=== PATIENT | female | born 1940 | race Caucasian/White ===

== ENCOUNTER 2018-06-23 09:12 | Emergency (ER) | payer MEDICARE, BC, SELFPAY ==
[2018-06-23 09:15] VITALS: BP 142/68; PULSE 80; RESP 16; TEMP 36.7; O2SAT 97
--- NOTE | 2018-06-23 09:48 | DI.RAD_ITS ---
SYMPTOM/DIAGNOSIS: FELL, PAIN, SWELLING LEFT THUMB: Three views. There is an oblique, intra-articular nondisplaced fracture involving the lateral aspect of the base of the proximal phalanx of the left thumb. Degenerative changes are seen in the left thumb. They are most marked at the first carpal metacarpal joint. No radiopaque foreign bodies are seen in the soft tissues. IMPRESSION: Nondisplaced intra-articular fracture involving the base of the proximal phalanx of the left thumb.
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
--- NOTE | 2018-06-23 11:32 | DI.VRAD_ITS ---
EXAM: XR Left Finger(s), 2 or More Views CLINICAL HISTORY: 77 years old, female; Pain; Finger(s); Left; Patient HX: Left thumb pain after fall yesterday, pain and swelling a mid and distal lt thumb. TECHNIQUE: Frontal, lateral and oblique views of finger(s) of the left hand. COMPARISON: No relevant prior studies available. FINDINGS: Chest AP a consistent with age. 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 Small corner fracture at the base of the proximal phalanx of the thumb on the lateral aspect extending slightly into the joint space but without significant joint incongruity. This appears to represent a avulsion type fracture. IMPRESSION: Fracture of the base of the proximal phalanx of the thumb as outlined above. Dictated and Authenticated by: Alvin Ngo MD. Ordering:MARINA PAVON MD
[2018-06-23 11:52] VITALS: BP 142/68; PULSE 80; RESP 16; TEMP 36.7; O2SAT 97
== END 2018-06-23 11:51 | disposition home or self-care (01) ==
PROVIDERS: Emergency Provider Student in an Organized Health Care Education/Training Program; PCP Internal Medicine
DX: S62.512A Displaced fracture of proximal phalanx of left thumb, initial encounter for closed fracture (principal); W05.2XXA Fall from non-moving motorized mobility scooter, initial encounter
CPT/HCPCS: 26720; 73140

== ENCOUNTER → 2018-07-13 10:08 | Outpatient (BNVA) | payer MEDICARE, BC, SELFPAY | PROVIDERS: PCP Internal Medicine; Referring Provider Internal Medicine; Visit Provider Student in an Organized Health Care Education/Training Program | DX: S62.515A Nondisplaced fracture of proximal phalanx of left thumb, initial encounter for closed fracture (principal); M65.311 Trigger thumb, right thumb; V00.831A Fall from motorized mobility scooter, initial encounter | CPT/HCPCS: 20600; 99204; 99214; J1030 ==

== ENCOUNTER 2018-09-11 14:14 | Outpatient (REF) | payer MEDICARE, BC, SELFPAY ==
[2018-09-11 19:29] LABS: Anion Gap 8.7 mmol/L (3-11); BUN 19 mg/dL (7-18); CO2 28.3 mmol/L (21.0-32.0); CREATININE 0.82 mg/dL (0.55-1.02); Calcium 9.2 mg/dL (8.5-10.1); Chloride 102 mmol/L (98-107); Glucose 85 mg/dL (70-100); Potassium 4.2 mmol/L (3.5-5.1); Sodium 139 mmol/L (136-145)
== END 2018-09-11 14:34 ==
LOC: NCHCN 14:14
PROVIDERS: PCP Internal Medicine; Visit Provider Physician Assistant Medical
DX: I10 Essential (primary) hypertension (principal)
CPT/HCPCS: 80048

== ENCOUNTER 2018-10-10 01:20 | Outpatient (CLI) | payer MEDICARE, BC, SELFPAY ==
--- NOTE | 2018-10-10 11:18 | DI.MAMMO_ITS ---
SYMPTOMS/DIAGNOSIS: SCREENING, Z12.89, FAMILY H/O BREAST CA BILATERAL SCREENING MAMMOGRAM: Mammograms were interpreted according to the usual protocol including computer analysis with CAD system, tomosynthesis and C view imaging. Comparison is made with exams from 2009 through 2013. The breasts are composed of heterogeneously dense fibroglandular tissue, breast density category C. No suspicious masses or suspicious microcalcifications are seen. There has been no significant change. IMPRESSION: Category 1C, negative mammogram. Yearly screening mammography is recommended. SA ASSESSMENT OF FINDINGS: Negative. Category 1. Patient will receive a letter notifying them of these results. Bi-RADS category C. The breasts are heterogeneously dense, which may obscure small masses.
== END 2018-10-10 01:40 ==
PROVIDERS: PCP Internal Medicine; Visit Provider Physician Assistant Medical
DX: Z12.31 Encounter for screening mammogram for malignant neoplasm of breast (principal); Z80.3 Family history of malignant neoplasm of breast
CPT/HCPCS: 77063; 77067

== ENCOUNTER 2019-08-28 00:40 | Outpatient (CLI) | payer MEDICARE, BC, SELFPAY ==
--- NOTE | 2019-08-28 09:14 | DI.RAD_ITS ---
EXAM: XR HIP RT COMPLETE AP PELVIS INDICATION: S/P RTHA 03/27, WORSENING THIGH PAIN. TECHNIQUE: 2D digital imaging was performed. FINDINGS: A right total hip prosthesis has been placed since the previous exam and appears well aligned. No pe riprosthetic lucencies are seen. There is prominent spurring at the left hip joint, both the acetabu lum and femoral head. There is increased sclerosis and a subchondral cyst at the superior lateral ma rgin of the femoral head. There are old bilateral inferior pubic ramus fractures. Degenerative disc changes are seen in the lower lumbar spine. SI joints and pubic symphysis are unremarkable. IMPRESSION: Moderate to severe degenerative changes of the left hip. Unremarkable right total hip prosthesis.
== END 2019-08-28 01:00 ==
PROVIDERS: PCP Internal Medicine; Visit Provider Nurse Practitioner Adult Health
DX: M79.604 Pain in right leg (principal); Z96.641 Presence of right artificial hip joint; M16.12 Unilateral primary osteoarthritis, left hip
CPT/HCPCS: 73502

== ENCOUNTER 2020-04-24 09:09 | Emergency (ER) | payer MEDICARE, BC, SELFPAY ==
[2020-04-24 09:14] VITALS: BP 143/69; PULSE 83; RESP 14; TEMP 36.7; O2SAT 96
--- NOTE | 2020-04-24 09:42 | ED.GENADUL_ITS ---
Discharge Plan Disposition Patient Disposition: HOME Condition: Stable Discharge Details Chief Complaint: Cellulitis Clinical Impression: Bee sting Primary Care Provider: Morales Pal[facility]ox ED Provider: Alexis Navarro Home Meds and New Rx's Prescriptions: New cephalexin [Keflex] 500 mg capsule 500 mg PO QID 10 Days Qty: 40 RF: 0 hydrocortisone 1 % lotion 1 applic TP BID PRNQty: 60 RF: 0 Continued verapamil 120 MG tablet extended release 240 mg PO DAILY RF: 0 multivitamin [Daily Multiple] 1 EACH tablet 1 ea PO DAILY RF: 0 docusate sodium [Stool Softener] 100 MG capsule 100 mg PO PRN PRNRF: 0 atorvastatin 40 mg tablet 40 mg PO DAILY RF: 0 Discharge Instructions Instructions: Insect Bite or Sting (ED) Additional Instructions: Rest, elevate, cool compresses every 2 hours for 20 minutes. Continue taking Benadryl [id number]-agtsryb as directed and add on 1% hydrocortisone cream as directed. Please watch for new or worsening symptoms and return to the ER for any concerns. I have given you a prescription for Keflex to only fill if the area becomes painful, starts to streak up your arm, or you begin to have a fever. As already stated, if you are concerned you may obviously return to the ER. I do recommend contacting your primary care provider later today for prompt outpatient reevaluation. Discharge Data Discharge Date/Time-TO BE ENTERED AT DEPARTURE: 04/24/20 10:01 Medical Decision Making Pleasant 79-year-old female in no acute distress presents for a bee sting that occurred yesterday. She reports similar reaction to the other hand 1 week ago, took 2 days to completely clear up. She appears well, nontoxic, no evidence of lip or tongue swelling, angioedema, or systemic reaction. Clinically this appears to be a localized reaction as opposed to an infection. She took Benadryl last night but has not taken Benadryl today. She reports that her primary concern is that of pruritus. I see no obvious signs of infection although she does voice concern of infection. I explained to her that I believe this to be a localized bee sting in the continuing elevation, cool compresses, Benadryl consistently, and using a topical 1% hydrocortisone cream would be appropriate for localized sting. We did discuss signs and symptoms of infection and I will provide her a prescription of Keflex if symptoms are presenting such as fever, pain, worsening redness or spreading of the redness. We also discussed that this could be the signs of a worsening allergic reaction so I did recommend return either here to the ER or following up with her primary care provider. She has no additional questions or concerns and is comfortable with this plan. Medical Records Medical records reviewed: Yes I reviewed the patient's medical records. HPI General Mode of arrival: ambulatory . Date/Time Provider Initiated Documentation: 04/24/20 09:14 . Limitations to Documentation: no limitations . Information obtained by: patient . HPI Narrative: This is an 79-year-old female with history of hyperlipidemia, hypertension, GERD, presenting for a reaction to a bee sting. Patient is right-hand dominant, stung on her left thumb yesterday around 11:30 AM. She took Benadryl last night, no Benadryl today. She reports the area is red, swollen and itchy. She denies any fever, pain, tongue or lip swelling, difficulty breathing or speaking. She reports a similar reaction roughly 1 week ago, took approximately 2 days for the reaction to resolve completely. Denies any chest pain or shortness of breath. Related Data Home Medications Medication Instructions Recorded Confirmed verapamil 240 mg PO DAILY tab-cap NS 05/27/14 04/24/20 docusate sodium [Stool Softener] 100 mg PO PRN PRN tab-cap 05/09/17 04/24/20 multivitamin [Daily Multiple] 1 ea PO DAILY 05/09/17 04/24/20 atorvastatin 40 mg PO DAILY 04/24/20 04/24/20 cephalexin [Keflex] 500 mg PO QID 10 Days #40 cap 04/24/20 hydrocortisone 1 applic TP BID PRN #60 ml 04/24/20 Previous Rx's Medication Instructions Recorded cephalexin [Keflex] 500 mg PO QID 10 Days #40 cap 04/24/20 hydrocortisone 1 applic TP BID PRN #60 ml 04/24/20 Allergies Allergy/AdvReac Type Severity Reaction Status Date / Time aspirin Allergy Unverified 04/24/20 09:18 General Stated Complaint: Cellulitis REID: 3 Review of Systems Constitutional Constitutional: Denies fatigue, Denies fever(s) and Denies weakness ENT Ears, Nose, Mouth, and Throat: Denies sore throat and Denies throat swelling Cardiovascular Cardiovascular: Denies chest pain and Denies dyspnea Respiratory Respiratory: Denies cough, Denies dyspnea and Denies wheezing Gastrointestinal Gastrointestinal: Denies nausea Musculoskeletal Musculoskeletal: Denies numbness and Denies tingling Integumentary/Breasts Skin/Breast: Reports erythema Neurologic Neurologic: Denies numbness, Denies tingling and Denies weakness Endocrine Endocrine: Denies fatigue Allergic/Immunologic Allergic/Immunologic: Denies throat swelling and Denies wheezing [facility] Medical History GERD (gastroesophageal reflux disease) Surgical History gonzalo (05/09/11) Colonoscopy - IV Sedation (~2010) polyps found Social History Smoking/Tobacco Use Status: Former Tobacco Use Alcohol Intake: current Alcohol Intake frequency: a few times a month Alcohol type: wine Drug use: Never Do you feel safe at home: Yes Do you feel safe in your relationship?: Yes Exam Const General: cooperative, healthy appearing, comfortable and no acute distress Orientation: alert and awake [facility] Head: normal to inspection, normocephalic and atraumatic Face and sinus: normal facial exam Mouth: oral mucosae normal and moist mucous membranes Throat: posterior oropharynx normal Eyes Conjunctivae: conjunctivae normal Sclera: sclerae normal Neck Neck: normal visual inspection, full ROM, trachea midline and supple Resp Effort & Inspection: normal respiratory effort and able to speak in complete sentences Auscultation: clear to auscultation bilaterally Cardio Rate: regular rate Rhythm: regular rhythm Skin Lesions: no lesions Neuro General: patient alert, patient awake, patient oriented x3, moves all extremities and no focal motor deficits Cognition: normal cognition Speech: speech normal Sensory Exam: no sensory deficits noted Extrem Right upper extremity: normal to inspection, full ROM and normal capillary refill Hand/finger images: 1. Site of bee sting, no obvious stinger 2. Minimal erythema, swelling, areas of excoriation. There is mild warmth. The area is non-circumferential. There is no induration, fluctuance, weeping, pointing abscess. The area is nontender. Neuro, vascular, tendon intact. There is no lymphangitic streaking Right lower extremity: normal to inspection and full ROM Left lower extremity: normal to inspection and full ROM Psych Appearance: grossly normal Mental Status: mental status grossly normal Course Vital Signs Vital signs: Vital Signs Temperature 36.7 C 04/24/20 09:14 Pulse 83 04/24/20 09:14 Respiratory Rate 14 04/24/20 09:14 Blood Pressure 143/69 H 04/24/20 09:14 Pulse Oximetry 96 04/24/20 09:14 Temperature 36.7 C 04/24/20 09:14 Temperature Source Skin 04/24/20 09:14 Pulse 83 04/24/20 09:14 Respiratory Rate 14 04/24/20 09:14 Respiratory Effort 04/24/20 09:20 Blood Pressure 143/69 H 04/24/20 09:14 Blood Pressure Position Sitting 04/24/20 09:14 Pulse Oximetry 96 04/24/20 09:14 Oxygen Delivery Method Room Air 04/24/20 09:14 Oxygen Flow Rate 0 04/24/20 09:14 Pain Level 8 04/24/20 09:14 Comment tylenol at 0430 04/24/20 09:14
== END 2020-04-24 10:01 | disposition home or self-care (01) ==
PROVIDERS: Emergency Provider Physician Assistant; PCP Internal Medicine
DX: T63.451A Toxic effect of venom of hornets, accidental (unintentional), initial encounter (principal); L29.8 Other pruritus; I10 Essential (primary) hypertension
CPT/HCPCS: 99283

== ENCOUNTER 2020-07-08 04:12 | Outpatient (CLI) | payer MEDICARE, BC, SELFPAY ==
[2020-07-08 10:02] LABS: ALT 34 U/L (14-59); AST 22 U/L (15-37); Albumin 3.5 g/dL (3.4-5.0); Alkaline Phosphatase 96 U/L (46-116); Bilirubin, Direct 0.14 mg/dL (0.00-0.20); Bilirubin, Total 0.7 mg/dL (0.2-1.0); Total Protein 6.6 g/dL (6.4-8.2)
== END 2020-07-08 04:32 ==
PROVIDERS: PCP Internal Medicine; Visit Provider Internal Medicine Cardiovascular Disease
DX: E78.5 Hyperlipidemia, unspecified (principal)
CPT/HCPCS: 36415; 80076

== ENCOUNTER 2022-05-25 18:41 | Outpatient (REF) | payer MEDICARE, BC, SELFPAY ==
[2022-05-25 21:41] LABS: ALT 33 U/L (14-59); Anion Gap 9.1 mmol/L (3-11); BUN 15 mg/dL (7-18); CO2 27.9 mmol/L (21.0-32.0); CREATININE 0.6 mg/dL (0.55-1.02); Calcium 8.4 mg/dL (8.5-10.1); Calculated LDL 85 mg/dL (<100); Chloride 105 mmol/L (98-107); Cholesterol 167 mg/dL (<200); Glucose 85 mg/dL (74-106); HDL Cholesterol 63 mg/dL (40-60); LDL CHOLESTEROL 79 mg/dL (<100); Potassium 3.9 mmol/L (3.5-5.1); Sodium 142 mmol/L (136-145); TSH 0.61 uIU/mL (0.36-3.74); Triglyceride 99 mg/dL (<150)
== END 2022-05-25 18:42 | disposition home or self-care (01) ==
LOC: NCHCN 18:41
PROVIDERS: PCP Internal Medicine; Visit Provider Internal Medicine
DX: I10 Essential (primary) hypertension (principal); E78.5 Hyperlipidemia, unspecified
CPT/HCPCS: 80048; 80061; 83721; 84443; 84460

== ENCOUNTER → 2022-06-06 02:46 | Outpatient (CLI) | payer MEDICARE, BC, SELFPAY ==
--- NOTE | 2022-06-06 | DI.MAMMO_ITS ---
Exam(s) MAMMO SCREENING EXAM: MAMMO SCREENING CLINICAL HISTORY: SCREENING MAMMO Z12.31, FAM HX TECHNIQUE: Bilateral full field digital CC and MLO mammographic images were obtained with 3D tomosyn thesis and utilizing computer aided detection (CAD). COMPARISON: Available for comparison. FINDINGS: Masses/Architectural Distortion: None seen. Microcalcifications: No suspicious pleomorphic-type are seen. Skin Thickening/Nipple Retraction: None. IMPRESSION: 1. No significant interval change with no specific features of malignancy noted. 2. Unless there is more urgent need, screening mammography is recommended, as per [employer] [place] [employer] guidelines. BI-RADS Category 1 - Negative Breast Density - Category C - Heterogeneously dense Breast density category C or D implies that the patient has dense breast tissue. Dense breast tissue is very common and is not abnormal but dense breast tissue can make it harder to find cancer on a ma mmogram. Also, dense breast tissue may increase their breast cancer risk. This information about the result of the mammogram report was provided to the patient to raise their awareness. Use this report when you speak with the patient about their risks for breast cancer, which includes their family hist ory. At that time, you may recommend for more screening tests (Ultrasound or MRI) as they might be us eful based on their risk. A negative radiographic report should not delay biopsy if a dominant or clinically suspicious mass is present. Up to ten percent of cancers are not identified on mammography. A negative report may reinforce clinical impression. Adenosis and dense breasts may obscure an underlying neoplasm. False positive reports average 6 to 10%. Patient will receive a letter notifying them of these results.
== END ==
PROVIDERS: PCP Internal Medicine; Visit Provider Internal Medicine
DX: Z12.31 Encounter for screening mammogram for malignant neoplasm of breast (principal); R92.8 Other abnormal and inconclusive findings on diagnostic imaging of breast
CPT/HCPCS: 77063; 77067

== ENCOUNTER 2023-05-29 18:00 | Outpatient (REF) | payer MEDICARE, BC, SELFPAY ==
[2023-05-29 19:40] LABS: ALT 37 U/L (14-59); Anion Gap 8.2 mmol/L (3-11); BUN 21 mg/dL (7-18); CO2 26.8 mmol/L (21.0-32.0); CREATININE 0.8 mg/dL (0.55-1.02); Calcium 8.8 mg/dL (8.5-10.1); Chloride 104 mmol/L (98-107); Creatine Kinase 110 U/L (26-192); Estimated GFR 73.06 (mL/min/1.73m2); Glucose 157 mg/dL (74-106); Potassium 4.1 mmol/L (3.5-5.1); Sodium 139 mmol/L (136-145); TSH 0.64 uIU/mL (0.36-3.74)
== END 2023-05-29 18:01 | disposition home or self-care (01) ==
LOC: NCHCN 18:00
PROVIDERS: PCP Internal Medicine; Visit Provider Internal Medicine
DX: E78.5 Hyperlipidemia, unspecified (principal); K21.9 Gastro-esophageal reflux disease without esophagitis; I10 Essential (primary) hypertension; M16.11 Unilateral primary osteoarthritis, right hip
CPT/HCPCS: 80048; 82550; 84443; 84460

== ENCOUNTER → 2023-06-09 00:55 | Outpatient (CLI) | payer MEDICARE, BC, SELFPAY ==
--- NOTE | 2023-06-09 13:52 | DI.DEXA_ITS ---
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 FINDINGS: Lateral Spine Image: Unremarkable. No compression deformities identified. Left hip: Total T-Score: -1.6. This compares to -0.8 on the prior examination. Total Z-Score: 0.7 T- and Z-scores: Findings are consistent with osteopenia. Lumbar Spine: Total T-Score: -2.6. This compares to -2.2 on the prior examination. Total Z-Score: 0.3 T- and Z-scores: Findings are consistent with osteoporosis. IMPRESSION: Osteoporosis in the lumbar spine.
== END ==
PROVIDERS: PCP Internal Medicine; Visit Provider Internal Medicine
DX: M81.0 Age-related osteoporosis without current pathological fracture (principal); Z13.820 Encounter for screening for osteoporosis
CPT/HCPCS: 77080